=== PATIENT | male | born 1980 | race Caucasian/White ===

== ENCOUNTER 2021-10-02 04:07 | Emergency (ER) | payer SELFPAY ==
[~2021-10-02] VITALS: Ht 177.8 cm; Wt 100.0 kg
[2021-10-02 04:29] VITALS: BP 166/89
[2021-10-02] MEDS ORDERED: LORAZEPAM 1MG TABLET PO ONE (05:30)
[2021-10-02 06:10] LABS: BASOPHILS % 0.1 % (0.0-2.0); EOSINOPHILS % 0.1 % (0.0-5.0); HEMATOCRIT. 37.5 % (42.0-52.0); HEMOGLOBIN. 12.8 g/dL (14.0-18.0); LYMPHOCYTES % 9.6 % (20.0-50.0); MEAN CORPUSCULAR HEMOGLOBIN 32.6 pg (28.0-32.0); MEAN CORPUSCULAR VOLUME 95.4 fL (80.0-94.0); MONOCYTES % 9.9 % (2.0-8.0); NEUTROPHILS % 80.3 % (40.0-76.0); PLATELET 189 x1000/uL (130-400); RED BLOOD CELL COUNT 3.93 mill/uL (4.7-6.1); RED CELL DISTRIBUTION WIDTH 13.4 % (11.6-14.6)
[2021-10-02 06:20] LABS: CHLORIDE 103 mEq/L (98-107)
[2021-10-02] MEDS ORDERED: POTASSIUM CHLORIDE 20MEQ TABLET SR PO ONE (06:30)
== END 2021-10-02 08:04 | disposition home or self-care (01) ==
LOC: ER 04:07
DX: F41.0 Panic disorder [episodic paroxysmal anxiety] (principal); Z56.6 Other physical and mental strain related to work; R05.9 Cough, unspecified
CPT/HCPCS: 36415; 71045; 80048; 84443; 85025; 93005; 99285